=== PATIENT | female | born 1960 | race Caucasian/White ===

== ENCOUNTER 2024-10-09 01:42 | Emergency (ER) | payer SELFPAY ==
[~2024-10-09] VITALS: Ht 162.6 cm; Wt 57.0 kg
[2024-10-09 01:55] VITALS: O2SAT 100
[2024-10-09 04:11] LABS: HEMATOCRIT. 42.3 % (36.0-48.0); HEMOGLOBIN. 13.7 g/dL (12.0-16.0); MEAN CORPUSCULAR HEMOGLOBIN 28.3 pg (28.0-32.0); MEAN CORPUSCULAR HGB CONC 32.4 g/dL (31.0-37.0); MEAN CORPUSCULAR VOLUME 87.3 fL (81.0-99.0); MEAN PLATELET VOLUME 7.9 fl (7.4-10.4); PLATELET 185 x1000/uL (130-400); RED BLOOD CELL COUNT 4.85 mill/uL (4.2-5.4); RED CELL DISTRIBUTION WIDTH 15.4 % (11.6-14.6); WHITE BLOOD COUNT 15.3 x1000/uL (4.5-11.0)
[2024-10-09] MEDS: KETOROLAC 30MG/ML VIAL IM ONE (04:18)
[2024-10-09 04:21] LABS: DIFFERENTIAL COMMENT 1
[2024-10-09] MEDS ORDERED: ACET-2708 MT (04:29)
[2024-10-09] MEDS ORDERED: DIPH25CA83 MT (04:29)
[2024-10-09 04:31] LABS: PROTHROMBIN TIME 10.8 sec (9.6-11.0)
[2024-10-09 04:41] LABS: CHLORIDE 101 mEq/L (98-107); POTASSIUM 3.8 mEq/L (3.5-5.1); SODIUM 137 mEq/L (136-145)
[2024-10-09 04:42] LABS: CALCIUM 9.2 mg/dL (8.7-10.4); CARBON DIOXIDE 23 mEq/L (21-32)
[2024-10-09 04:47] LABS: CREATININE 0.5 mg/dL (0.6-1.0); GLUCOSE 197 mg/dL (70-105); UREA NITROGEN BLOOD 12 mg/dL (9-23)
[2024-10-09 05:40] VITALS: BP 101/47; PULSE 77; RESP 14; TEMP 36.9; O2SAT 100
[2024-10-09 07:16] LABS: CLARITY URINE CLEAR (CLEAR); COLOR URINE YELLOW (YELLOW); GLUCOSE URINE 3+ (NEGATIVE); KETONES URINE 4+ (NEGATIVE); LEUKOCYTE ESTERASE URINE NEGATIVE (NEGATIVE); NITRITE URINE NEGATIVE (NEGATIVE); OCCULT BLOOD URINE NEGATIVE (NEGATIVE); PROTEIN URINE NEGATIVE (NEGATIVE); SPECIFIC GRAVITY URINE 1.041 (1.005-1.030); UROBILINOGEN URINE 0.2 E.U./dL (0.2-1.0)
[2024-10-09 07:33] LABS: BACTERIA URINE 1+; RBC URINE 0-2 /hpf (0-2); SQUAMOUS EPITHELIAL CELL URINE 1+ /lpf (RARE/1+); YEAST URINE NONE SEEN
[2024-10-09 07:43] LABS: PLATELET ESTIMATE NORMAL
== END 2024-10-09 06:00 | disposition home or self-care (01) ==
LOC: ER 01:42
DX: R51.9 Headache, unspecified (principal); E11.9 Type 2 diabetes mellitus without complications; Z79.899 Other long term (current) drug therapy
CPT/HCPCS: 99285; 70450; 86592; 80048; 81003; 85025; 85610; 85651; 36415; 96372; J1885